=== PATIENT | male | born 1970 | race Hispanic/Latino ===

== ENCOUNTER 2024-05-01 13:08 | Emergency (ER) | payer OTHER ==
[~2024-05-01] VITALS: Ht 172.7 cm; Wt 91.2 kg
[~2024-05-01 13:08] MED LIST: IBUP-2070 PO; LISI10TA24 PO
[2024-05-01 13:35] VITALS: PULSE 83; RESP 20; TEMP 97.8
[2024-05-01 15:55] LABS: BASOPHILS # (AUTO) 0.01 K/uL (0.00-0.20); BASOPHILS % (AUTO) 0.1 % (0.0-5.0); EOSINOPHILS # (AUTO) 0.15 K/uL (0.00-0.70); EOSINOPHILS % (AUTO) 1.9 % (0.0-8.0); HEMATOCRIT 41.2 % (42-54); IMMATURE GRANULOCYTE ABSOLUTE 0.02 K/uL (0-1); LYMPHOCYTES # (AUTO) 1.1 K/uL (1.0-4.8); LYMPHOCYTES % (AUTO) 14.1 % (21.0-51.0); MEAN CORPUSCULAR HEMOGLOBIN 27.6 pg (27.0-33.0); MEAN CORPUSCULAR VOLUME 81.3 fL (79-99); MONOCYTES # (AUTO) 0.7 K/uL (0.1-1.0); MONOCYTES % (AUTO) 8.6 % (3.0-13.0); PLATELET COUNT (AUTO) 241 K/uL (130-400); RED BLOOD CELL COUNT(AUTO) 5.07 MIL/uL (4.50-6.20); RED CELL DISTRIBUTION WIDTH 13.9 % (11.0-15.5)
[2024-05-01 16:06] LABS: CREATININE 0.9 mg/dL (0.5-1.3)
[2024-05-01 16:47] LABS: B-TYPE NATRIURETIC PEPTIDE < 5 pg/mL (0-100)
[2024-05-02] MEDS ORDERED: CEPH500B PO (04:29)
== END 2024-05-01 16:17 | disposition left against medical advice (07) ==
LOC: EEVIPCON 13:08 → EDH 13:08
DX: I82.402 Acute embolism and thrombosis of unspecified deep veins of left lower extremity (principal); Z53.21 Procedure and treatment not carried out due to patient leaving prior to being seen by health care provider
CPT/HCPCS: 36415; 80048; 83880; 85025

== ENCOUNTER 2024-05-02 01:39 | Emergency (ER) | payer OTHER ==
[~2024-05-02] VITALS: Ht 175.3 cm; Wt 91.2 kg
--- NOTE | 2024-05-02 03:08 | ERN ---
General Chief Complaint: Lower Extremity Pain/Injury Stated Complaint: RLE PAIN Time Seen by MD: 01:41 Source: patient History of Present Illness Initial Comments Patient is a 53-year-old male coming in to be evaluated for right lower extremity redness and swelling. Patient states that just began earlier today. He states he did not hit himself but noticed that today. Patient was seen earlier but left against medical advice. Allergies: Coded Allergies: No Known Allergies (Unverified Allergy, Unknown, 01/23/24) Home Meds Reported Medications Lisinopril (Lisinopril) 10 Mg Tablet, 10 MG PO DAILY, TAB 01/23/24 Ibuprofen (Ibuprofen) 600 Mg Tablet, 600 MG PO [id number] PRN for PAIN, TAB 01/23/24 Past Medical History Past Medical History: DVT, Hypertension Medical History Other: HEPATITIS C Past Surgical History: Other Surgical History Other: RIGHT FOOT Social History Social History: Drugs ROS Dictation CONSTITUTIONAL: No chills, no fever, no weakness, no diaphoresis, no malaise. HEAD/FACE: No signs of trauma. EENT: No eye pain, no blurred vision, no tearing, no double vision, no ear pain, no ear discharge, no nose pain, no nasal congestion, no throat pain, no t hroat swelling, no mouth pain. RESPIRATORY: No cough, no orthopnea, no SOB, no stridor, no wheezing. CARDIOVASCULAR: No chest pain, no edema, no palpitations, no syncope. GASTROINTESTINAL/ABDOMINAL: No abdominal pain, no constipation, no diarrhea, n o nausea, no vomiting. GENITOURINARY: No abnormal discharge, no dysuria, no frequent urination, no hematuria. No complaints of pain in the genitals. MUSCULOSKELETAL: No back pain, no gout, no joint pain, no joint swelling, muscle pain, no muscle stiffness, no neck pain. INTEGUMENTARY: change in color, no change in hair/nails, no dryness, no lesion, no lumps, no rash. NEUROLOGICAL/PSYCH: No anxiety, not depressed, no emotional problem, no headache, no numbness, no pre-existing deficit, no history of seizures, no tremors, no weakness. HEMATOLOGIC/LYMPHATIC: Not anemic, no history of blood clots, no apparent bleeding, no bruising, glands not swollen. All Systems Negative, Except as Noted. Physical Exam Physical Exam Dictation VITAL SIGNS: Reviewed. GENERAL APPEARANCE: Alert, oriented x3, no acute distress, obese. HEAD AND FACE: Non-traumatic. EYES: PERRL, pink conjunctivas, eyelid no trauma, anterior chamber clear. EARS: Pinnas intact and no signs of trauma or erythema. Ear canals clear and no discharge. TMs no erythema. NOSE: No discharge, no bleeding. OROPHARYNX: Mouth normal, teeth no caries, tongue pink. Pharynx clear, no erythema. Tonsils no exudates, no abscesses noted. Mucous membrane moist. NECK: Supple, non-tender, no thyromegaly, no masses, no JVD, no bruits. BREAST: Deferred. CHEST: No tenderness, no crepitus, no paradoxical movement, no retractions. LUNGS: Clear, well-ventilated, symmetric, no rales, no wheezing, no rhonchi, no stridor, good breath sounds bilaterally. HEART: Regular rate, regular rhythm, no murmur, no gallops. VASCULAR: No peripheral edema. ABDOMEN: Soft, positive bowel sounds, nondistended, no guarding, nontender, no rebound, no masses no hepatomegaly, no splenomegaly, no Hayes's sign, no hernias. RECTAL: Deferred. GENITAL: Deferred. NEUROLOGICAL: Normal speech, gross motor function intact, gross sensory function intact. MUSCULOSKELETAL: Neck nontender, full range of motion, back nontender, full range of motion. EXTREMITIES: Nontender, full range of motion. SKIN: Color pink, dry, no turgor, erythema of the lower left extremities, mild swelling pedal edema 1+. LYMPHATICS: Deferred. Results Laboratory and Microbiology Labs Reviewed?: Yes EKG/XRAY/US/CT/MRI X-RAY Comment X-ray ankle-NAD Ultrasound venous lower extremity-NAD except for lymph node MDM MDM: Differential diagnosis: Left lower extremity cellulitis, lymphangitis, Patient is a 53-year-old gentleman coming in to be evaluated for lower left extremity pain and swelling. Laboratory workup negative for acute findings ultrasound disclose a lower extremity lymph node consistent with lymphangitis secondary to cellulitis. Patient will be discharged with a diagnosis of lower left extremity cellulitis. Antibiotics will be provided. ED Course Orders Procedure Category Date Status Time Cbc With Differential LAB 05/02/24 Logged 02:02 Basic Metabolic Panel LAB 05/02/24 Logged 02:02 Us Venous Doppler US 05/02/24 Taken Unilateral 02:02 Ankle 2vws Lt RAD 05/02/24 Taken 02:02 Vital Signs Date Time Temp Pulse Resp B/P (MAP) Pulse Ox O2 Delivery O2 Flow Rate FiO2 05/02/24 01:41 99.7 119 18 179/119 96 Room Air 0 05/02/24 01:41 99.7 119 18 179/119 96 Room Air* 0 21 DX & DISP Disposition: Discharge Departure Impression: Primary Impression: Left leg cellulitis Condition: Stable Scripts Cephalexin Monohydrate (Keflex) 500 Mg Cap 1 CAP PO TID for 10 Days, #30 CAP 0 Refills Prov: WINTER LOPEZ MD 05/02/24 Additional Instructions: FOLLOW-UP WITH PRIMARY CARE PROVIDER IN 1 TO 2 DAYS. TAKE MEDICATIONS DIRECTED HERE IN THE EMERGENCY ROOM. OKAY TO CONTINUE HOME MEDICATIONS UNLESS OTHERWISE DISCUSSED DURING YOUR VISIT IN THE EMERGENCY ROOM TODAY. RETURN TO YOUR NEAREST EMERGENCY ROOM IF SYMPTOMS WORSEN OR IF THERE IS NO IMPROVEMENT. CALL 911 IF YOU NEED IMMEDIATE ASSISTANCE. TAKE TYLENOL [id number] NEEDED AND IF NO CONTRAINDICATIONS ARE PRESENT. INCREASE ORAL HYDRATION. A WOUND CULTURE OR URINE CULTURE WAS ORDERED HERE IN THE EMERGENCY ROOM DEPARTMENT PLEASE FOLLOW-UP WITH PRIMARY CARE PROVIDER AND ADVISE THEM TO GET REPEAT PORTS FROM OUR FACILITY. IF YOU HAD ANY MARELY WRAP/SPLINTS THAT WERE APPLIED HERE, PLEASE DO NOT REMOVE THEM UNTIL YOU SEE YOUR PRIMARY CARE OR SPECIALTY. Referrals: Referrals: SELF,REFERRAL (PCP) NIVIA RIDDLE MD Time of Disposition: 04:29 WINTER LOPEZ MD May 02, 2024 03:08
[2024-05-02] MEDS ORDERED: CEPH500B PO (04:29)
[2024-05-02 04:45] VITALS: BP 160/87; PULSE 100; RESP 18; TEMP 99; O2SAT 97
[2024-05-02] MEDS: ketOROlac 30MG VIAL (30MG/ML) IM ONE (04:45)
[2024-05-02] MEDS: cefTRIAXone 1G VIAL IM ONE (04:45)
--- NOTE | 2024-05-02 08:32 | HMCIMG ---
Exam Type: US VENOUS DOPPLER UNILATERAL Clinical Information: left lower extremity Comparison: None Findings: The examination shows normal deep venous system. There is normal compressibility at all levels. There is no intraluminal clot. There is no occlusion. Adequate response is obtained on augmentation. Impression: No evidence of DVT.
--- NOTE | 2024-05-02 08:52 | HMCIMG ---
Exam Type: ANKLE 2VWS LT Clinical Information: swelling red Comparison: None Findings: No fractures are seen. There is soft tissue swelling over the medial lateral malleolus consistent with ankle sprain. IMPRESSION: Ankle sprain.
== END 2024-05-02 05:00 ==
LOC: EEVIPCON 01:39 → EDH 01:39
DX: L03.116 Cellulitis of left lower limb (principal); I10 Essential (primary) hypertension; Z79.899 Other long term (current) drug therapy
CPT/HCPCS: 99285; 93971; 73600; 96372 ×2; J0696; J1885